=== PATIENT | male | born 1960 | race African-American/Black ===

== ENCOUNTER 2018-12-22 12:03 | Emergency (ER) | payer MEDICAID ==
[~2018-12-22] VITALS: Ht 175.3 cm; Wt 96.0 kg
[2018-12-22] MEDS ORDERED: ABIL10 PO (12:15)
[2018-12-22] MEDS ORDERED: MOME13HF IH (12:15)
[2018-12-22] MEDS ORDERED: ALBU18HF2 IH (12:15)
[2018-12-22] MEDS ORDERED: CARV25TA47 PO (12:15)
[2018-12-22] MEDS ORDERED: FURO-152 PO (12:15)
[2018-12-22] MEDS ORDERED: ATAZ1TAB PO (12:15)
[2018-12-22] MEDS ORDERED: VARE1TAB21 PO (12:15)
[2018-12-22] MEDS ORDERED: BUPR100T13 PO (12:15)
[2018-12-22] MEDS ORDERED: SPIR25TA6 PO (12:15)
[2018-12-22] MEDS ORDERED: EMTR1TAB12 PO (12:15)
[2018-12-22] MEDS ORDERED: IBUPROFEN 800MG TABLET PO ONE (12:45)
[2018-12-22] MEDS ORDERED: HYDROCODONE/ACETAMINOPHEN 10/325MG TABLET PO ONE (12:45)
[2018-12-22 13:04] LABS: CLARITY URINE CLEAR (CLEAR); COLOR URINE YELLOW (YELLOW); KETONES URINE NEGATIVE (NEGATIVE); LEUKOCYTE ESTERASE URINE NEGATIVE (NEGATIVE); NITRITE URINE NEGATIVE (NEGATIVE); OCCULT BLOOD URINE NEGATIVE (NEGATIVE); PH URINE 7.5 (4.5-8.0); PROTEIN URINE NEGATIVE (NEGATIVE); SPECIFIC GRAVITY URINE 1.015 (1.005-1.030)
[2018-12-22 13:15] LABS: BASOPHILS % 1.5 % (0.0-2.0); EOSINOPHILS % 6.1 % (0.0-5.0); HEMATOCRIT. 40.3 % (42.0-52.0); HEMOGLOBIN. 13.9 g/dL (14.0-18.0); LYMPHOCYTES % 38.9 % (20.0-50.0); MEAN CORPUSCULAR HEMOGLOBIN 33.8 pg (28.0-32.0); MEAN CORPUSCULAR VOLUME 97.8 fL (80.0-94.0); MEAN PLATELET VOLUME 8.1 fl (7.4-10.4); MONOCYTES % 9.8 % (2.0-8.0); NEUTROPHILS % 43.7 % (40.0-76.0); PLATELET 194 x1000/uL (130-400); RED BLOOD CELL COUNT 4.12 mill/uL (4.7-6.1); RED CELL DISTRIBUTION WIDTH 13.1 % (11.6-14.6)
[2018-12-22 13:21] LABS: CHLORIDE 107 mEq/L (98-107)
[2018-12-22 13:24] LABS: PARTIAL THROMBOPLASTIN TIME 27.8 sec (23.4-31.0); PROTHROMBIN TIME 10.2 sec (9.6-11.0)
[2018-12-22 15:29] VITALS: BP 165/66
== END 2018-12-22 15:36 | disposition home or self-care (01) ==
LOC: ER 12:03
DX: M54.16 Radiculopathy, lumbar region (principal); G89.29 Other chronic pain; Z79.899 Other long term (current) drug therapy
CPT/HCPCS: 36415; 71045; 72146; 72148; 80053; 81003; 84484; 85025; 85610; 85730; 93005; 99284; Z7610